=== PATIENT | male | born 1965 | race Caucasian/White ===

== ENCOUNTER 2019-06-06 12:07 | Outpatient (CLI) | payer OTHER, SELFPAY ==
--- NOTE | ~2019-06-06 | US_ITS ---
EXAMINATION: US venous doppler [facility] DATE: 06/06/2019 13:00 INDICATION: Left lower limb pain and swelling. TECHNIQUE: Grayscale ultrasound images without and with compression and Doppler ultrasound images of the left lower extremity veins were obtained. COMPARISON: Ultrasound 02/19/2015 FINDINGS: The visualized portions of left common femoral vein, profunda (deep) femoral vein, femoral vein, popl iteal vein, peroneal veins, posterior tibial veins, and greater saphenous vein outflow are patent. IMPRESSION: 1. No deep venous thrombosis. Reviewed, dictated and finalized at location A.
== END 2019-06-06 12:08 | disposition home or self-care (01) ==
PROVIDERS: PCP Family Medicine; Visit Provider Family Medicine
DX: M79.662 Pain in left lower leg (principal); M79.89 Other specified soft tissue disorders
CPT/HCPCS: 93971

== ENCOUNTER 2019-07-29 07:26 | Outpatient (RCR) | payer OTHER, SELFPAY ==
[2019-06-30 13:20] VITALS: BMI 53.1
== END 2019-09-15 07:44 | disposition home or self-care (01) ==
LOC: ANHWOC 07:26
PROVIDERS: PCP Family Medicine; Visit Provider Family Medicine
DX: L03.116 Cellulitis of left lower limb (principal); L02.416 Cutaneous abscess of left lower limb
CPT/HCPCS: 99212; 99213; A9270; G0463

== ENCOUNTER 2019-12-18 17:48 | Emergency (ER) | payer OTHER, SELFPAY ==
[2019-12-18 17:52] VITALS: BP 123/62; PULSE 72; RESP 18; TEMP 36.3; O2SAT 100
--- NOTE | 2019-12-18 19:09 | ED.GENADULT ---
HPI - General Adult General Chief complaint: Skin/Abscess/Foreign Body Stated complaint: boil on my butt Time Seen by Provider: 12/18/19 18:55 Source: patient Mode of arrival: ambulatory Limitations: no limitations History of Present Illness HPI narrative: Patient is a 54-year-old male who presents with abscess to left buttocks x 2-3 days. Patient has a history of pilonidal cyst and has had multiple I&D's in the past for same. He denies fever, chills, body aches or drainage of abscess. Patient denies taking [id number] medications for pain at this time. Related Data Home Medications Medication Instructions Recorded Confirmed dulaglutide 1.5 mg/0.5 mL 1.5 mg SUB-Q WEEKLY 04/23/19 subcutaneous pen injector furosemide 40 mg tablet 40 mg PO QAM 04/23/19 06/30/19 pen needle, diabetic 32 gauge x #50 each 04/23/19 06/30/1903/08 spironolactone 100 mg tablet 100 mg PO DAILY 04/23/19 06/30/19 insulin lispro [Humalog U-100 40 unit SUBCUT TID 06/30/19 06/30/19 Insulin] Allergies Allergy/AdvReac Type Severity Reaction Status Date / Time Penicillins Allergy Mild Swelling Verified 12/18/19 19:58 of the throat Review of Systems Review of Systems: Narrative: CONSTITUTIONAL: Denies fever, chills, or sweats. EYES: Denies visual changes, redness, or discharge. ENT: Denies rhinorrhea, congestion, sore throat, or otalgia. CARDIOVASCULAR: Denies chest pain, palpitations, or edema. RESPIRATORY: Denies cough or dyspnea. GASTROINTESTINAL: Denies abdominal pain, nausea, vomiting, or diarrhea. GENITOURINARY: Denies dysuria or hematuria. SKIN: Abscess to left buttocks MUSCULOSKELETAL: Denies back pain, joint pain, or myalgia. NEUROLOGIC: Denies headache, numbness, dizziness, or weakness. PSYCHIATRIC: Denies anxiety or depression. [facility] Past Medical History Medical History Benign essential HTN Chronic kidney disease, stage 3 (moderate) Diabetic polyneuropathy associated with type 2 diabetes mellitus DM peripheral angiopathy Esophageal varices Liver disease, chronic, with cirrhosis FDC (current) use of insulin Mixed hyperlipidemia Moderate nonproliferative diabetic retinopathy of both eyes Morbid (severe) obesity due to excess calories Type 2 diabetes mellitus with hyperglycemia, with long-term current use of insulin Type 2 diabetes mellitus with stage 3 chronic kidney disease Venous insufficiency (chronic) (peripheral) Venous insufficiency of both lower extremities Surgical History Surgical History S/P right hemicolectomy Family History Family History Father Family history of heart disease in male family member before age 55 Patient's father is Mother Family history of heart disease in male family member before age 55 Patient's mother is Social History Social History Social History: Smoking status: Never smoker Second hand tobacco smoke exposure: No Alcohol intake: never Substance use: never Substance use type: does not use Gender identity (if verbalized by the patient): Male Exam Narrative: Exam Narrative: GENERAL: Well-appearing, well-nourished, and in no acute distress. HEAD: Normocephalic, atraumatic. EYES: No redness or drainage. ENT: Mucous membranes pink and moist. CHEST: No respiratory distress. HEART: Regular rate and rhythm. No murmur appreciated. EXTREMITIES: Normal range of motion. No edema. SKIN: Approximate 4 x 7 cm area of erythema to left gluteal cleft, induration and fluctuation present. NEURO: No focal deficits. Alert and oriented x3. Gait steady. PSYCH: Normal affect. No signs of depression or anxiety. Course Vital Signs Vital signs: Vital Signs Temperature 36.3 C L 12/03
[2019-12-18] MEDS: LIDOCAINE HCL 1% LOCAL INJ 20 ML VIAL (20:36)
[2019-12-18] MEDS: CLINDAMYCIN HCL 150 MG CAP 300 MG PO (20:44)
[2019-12-18 20:46] VITALS: BP 127/63; PULSE 74; RESP 18; O2SAT 99
== END 2019-12-18 20:47 | disposition home or self-care (01) ==
PROVIDERS: Emergency Provider Nurse Practitioner; PCP Family Medicine
DX: L02.31 Cutaneous abscess of buttock (principal); E11.42 Type 2 diabetes mellitus with diabetic polyneuropathy; E11.22 Type 2 diabetes mellitus with diabetic chronic kidney disease; I12.9 Hypertensive chronic kidney disease with stage 1 through stage 4 chronic kidney disease, or unspecified chronic kidney disease; N18.30 Chronic kidney disease, stage 3 unspecified; I87.2 Venous insufficiency (chronic) (peripheral); E11.51 Type 2 diabetes mellitus with diabetic peripheral angiopathy without gangrene; E66.01 Morbid (severe) obesity due to excess calories; Z68.42 Body mass index [BMI] 45.0-49.9, adult; E78.2 Mixed hyperlipidemia; K74.60 Unspecified cirrhosis of liver; Z79.4 Long term (current) use of insulin; Z90.49 Acquired absence of other specified parts of digestive tract
CPT/HCPCS: 10061; 99283; A9270